=== PATIENT | male | born 1980 | race Caucasian/White ===

== ENCOUNTER 2025-03-15 00:30 | Day surgery (SDC) | payer OTHER, SELFPAY ==
[2025-03-06 12:38] VITALS: BMI 28.8
--- NOTE | 2025-03-06 12:49 | PC.NURSE ---
Report to hospital entrance 7 right of the green pavilion located off [facility] by 'thuy parking lot, at time _0600_ on date _[id number]_. Planned Procedure Time: _729_.? Time changes happen often and if your time is changed the preop area will call you the afternoon before. - You and your visitor will be asked to self-screen and do not enter if you have any COVID symptoms. Please call surgeon if you need to reschedule. - A mask is optional within the hospital at this time. Patients may have clear liquids (water, carbonated beverages, clear teas, apple juice) until 3 hours prior to surgery with a maximum of 20 ounces. - No food from midnight until time of surgery and no smoking, or chewing tobacco (or any form of nicotine). No chewing gum, candy or mints. Take only the following medications with a SIP of water on the morning of surgery: Sertraline____ DO NOT STOP ANY OF YOUR OTHER PRESCRIPTION MEDICATIONS PRIOR TO SURGERY EXCEPT THE FOLLOWING Hold all vitamins and supplements for 3 days per anesthesiologist. Medications to discontinue per physician ____Ibuprofen Date to take last ukfo___[id number]____ Please no make-up, nail honduran, hairspray, perfume, deodorant, or body powder the day of surgery.? No jewelry (including any body piercings) or valuables the day of surgery, leave them at home.? Please take a shower or bath the night before, or the morning of, surgery with an antibacterial soap.? Wear comfortable, loose fitting clothing. - Jewelry must be removed prior to entering the operating room.? Rings and piercings that are not removed may be cut off. - The hospital will not accept responsibility for valuables.? - Please leave all valuables, including medications, at home the day of surgery. Follow any additional instructions given to you from your surgeon. Telephone instructions given to __Poornima Ledbetter___and asked if any additional questions and then verbalized understanding. Patient advised to call surgeon office or pre surgery nurse liaison [phone] if any additional questions.
[2025-03-15] VITALS (13 sets, daily range): BP systolic 111–142; BP diastolic 62–95; PULSE 60–97; RESP 12–20; TEMP 36.1–36.6; O2SAT 95–100
--- NOTE | ~2025-03-15 | XR_ITS ---
EXAMINATION: XR fluoroscopy no charge DATE: 03/15/2025 11:02 INDICATION: Cervical discectomy and fusion TECHNIQUE: 5 fluoroscopic images of the spine were obtained during procedure performed by Dr. Butler . Radiologist was not present for the imaging or procedure. The amount of fluoroscopy time used durin g this procedure was 0.2 minutes. Total DAP was 0.523 Gym^2. COMPARISON: None. FINDINGS: Initial image demonstrates endotracheal tube extending to the oropharynx and visualized upper trachea and beyond the margin of the field of imaging. Mild anterolisthesis C2 on C3. Cervical spondylosis w ith moderate disc height loss at C3-C4 and C5-C6 and mild disc height loss at C2-C3 and C4-C5. Subseq uent images demonstrate discectomies and placement of interbody fusion device at C4-C5, C5-C6 and C6- C7. There is also anterior plate and screw fixation extending from C4-C7. IMPRESSION: 1. Fluoroscopy utilized during C4-C5 through C6-C7 discectomies and C4-C7 instrumented anterior spina l fusion. See procedure note for further detail. Reviewed, dictated and finalized at location A. IMPRESSION: 1. Fluoroscopy utilized during C4-C5 through C6-C7 discectomies and C4-C7 instr umented anterior spinal fusion. See procedure note for further detail.
--- NOTE | ~2025-03-15 | XR_ITS ---
CHEST RADIOGRAPH, PA AND LATERAL CLINICAL HISTORY: CERVICAL SPINE SURGERY PREOP . COMPARISON: None available TECHNIQUE: PA and lateral views of the chest. FINDINGS The cardiomediastinal silhouette is unremarkable. The lungs are clear. IMPRESSION: No focal infiltrate or effusion. Reviewed, dictated and finalized at location A.
--- OUTSIDE RECORDS SUMMARY | 2025-03-15 00:33 | XMS_ITS | Clinical Summary ---
Author Organization [facility] Address [address] [place] [address] Care Team Providers Care Magistrate Assistant Name Role Phone Rosales Sagastume MD, Ben Primary Care Provider [phone] Encounters Date Type Department Care Team Description 02/22/2025 10:00 AM CDT - 02/22/2025 11:59 PM CDT Hospital Encounter [facility] [address] [facility] [place], [place] [id number] Blanca Tang PA Discharge Disposition: Home or Self Care (Routine Discharge) 02/22/2025 Travel from Last 3 Months Social History Tobacco Use Types Packs/Day Years Used Date Smoking Tobacco: Never Assessed Sex and Gender Information Value Date Recorded Sex Assigned at Not on file Legal Sex Male 10:30 AM CDT Gender Identity Not on file Sexual Orientation Not on file Plan of Treatment Health Maintenance Due Date Last Done Comments Annual Physical 1983 Hepatitis C 1998 DTaP, Tdap and Td Vaccines ( 1 - Tdap) 1999 Hepatitis B Vaccines (1 of 3 - 19+ 3-dose series) 1999 HPV Vaccines (1 - 3-dose SCD M series) 2007 COVID-19 Vaccine (2023-2 5 season) 2024 Meningococcal B Vaccine Aged Out No l onger eligible based on patient's age to complete this topic Meningococcal Vaccine Aged Out No kelechi ora eligible based on patient's age to complete this topic Pneumococcal Vaccine: Pediat rics (0 to 5 Years) and At-Risk Patients (6 to 49 Years) Aged Out No longer eligible b ased on patient's age to complete this topic RSV Immunizations Under 20 Months Aged Out No longer eligible based on patient's age to complete this topic Procedures Procedure Name Priority Date/Time Associated Diagnosis Comments CT CERV SPINE WO CON Routine 02/22/2025 11:05 AM CDT Degenerative disc disease, cervical from Last 3 Months Results * CT CERV SPINE WO CON (02/22/2025 11:05 AM CDT) Anatomical Region Laterality Modality Spine Computed Tomogra phy 03/01/2025 12:4 2 PM CDT Impressions 03/01/2025 12:59 PM CDT IMPRESSION: 1) Mild abnormal cervical kyphosis with persistent 5 mm anterior translation of C2 on C3. 2. Severe chronic multilevel cervical spine degenerative disc disease/spondylosis similar to previous study. Ordered By: BLANCA TANG Interpreted By: Lawrence Bains MD, 03/01/2025 12:42 PM Narrative 03/01/2025 12:59 PM CDT [address] [place] [address] Examination: CT CERV SPINE WO CON Exam time: 02/22/2025 10:59 AM Clinical history: Chronic neck pain Comparison: MRI cervical spine 11/10/2024 Technique: Axial images obtained through the cervical spine without contrast using low-dose CT technique. Sagittal and coronal reconstruction. Findings: There is a normal craniovertebral junction. There is abnormal cervical kyphosis similar to previous study with approximately 5 mm anterior translation of C2 on C3. Cervical vertebral body heights are well-maintained. There is no evidence of acute cervical spine fracture or focal lytic bone destructive lesion. No significant abnormal prevertebral soft tissue swelling. Normal relationship between the anterior arch of C1 and the odontoid with some chronic degenerative change. C2-3 demonstrates chronic degenerative disc disease with diffuse disc bulge, uncovertebral spurring, right side facet degenerative change and 5 mm anterior translation of C2 contributing to moderate central stenosis with severe narrowing of the right neural foramen. C3-4 demonstrates chronic degenerative disc disease with diffuse disc bulge, uncovertebral spurring and left-sided facet degenerative change causing moderate to severe central stenosis with slight impingement on the left ventral cord and severe narrowing of left neural foramen. C4-5 demonstrates chronic degenerative disc disease with diffuse disc bulge, uncovertebral spurring and facet degenerative change causing moderate to severe central stenosis with severe narrowing of left neural foramen. C5-6 demonstrates chronic degenerative disc disease with diffuse disc bulge, uncovertebral spurring and facet degenerative change causing severe central stenosis with severe right and moderate left foraminal narrowing. C6-7 demonstrates chronic degenerative disc disease with diffuse disc bulge and uncovertebral spurring causing severe central stenosis with severe narrowing of both neural foramina. C7-T1 disc level is unremarkable. No significant acute paraspinous soft tissue abnormality is demonstrated. Procedure Note Lawrence Bains MD - 03/01/[address] [place] [address] Examination: CT CERV SPINE WO CON Exam time: 02/22/2025 10:59 AM Clinical history: Chronic neck pain Comparison: MRI cervical spine 11/10/2024 Technique: Axial images obtained through the cervical spine withoutcontrast using low-dose CT technique. Sagittal and coronalreconstruction. Findings: There is a normal craniovertebral junction. There is abnormalcervical kyphosis similar to previous study with approximately 5 mmanterior translation of C2 on C3. Cervical vertebral body heights arewell-maintained. There is no evidence of acute cervical spine fracture orfocal lytic bone destructive lesion. No significant abnormal prevertebralsoft tissue swelling. Normal relationship between the anterior arch of C1and the odontoid with some chronic degenerative change. C2-3 demonstrates chronic degenerative disc disease with diffuse discbulge, uncovertebral spurring, right side facet degenerative change and 5mm anterior translation of C2 contributing to moderate central stenosiswith severe narrowing of the right neural foramen. C3-4 demonstrates chronic degenerative disc disease with diffuse discbulge, uncovertebral spurring and left-sided facet degenerative changecausing moderate to severe central stenosis with slight impingement on theleft ventral cord and severe narrowing of left neural foramen. C4-5 demonstrates chronic degenerative disc disease with diffuse discbulge, uncovertebral spurring and facet degenerative change causingmoderate to severe central stenosis with severe narrowing of left neuralforamen. C5-6 demonstrates chronic degenerative disc disease with diffuse discbulge, uncovertebral spurring and facet degenerative change causing severecentral stenosis with severe right and moderate left foraminalnarrowing. C6-7 demonstrates chronic degenerative disc disease with diffuse discbulge and uncovertebral spurring causing severe central stenosis withsevere narrowing of both neural foramina. C7-T1 disc level is unremarkable. No significant acute paraspinous soft tissue abnormality isdemonstrated. IMPRESSION: 1) Mild abnormal cervical kyphosis with persistent 5 mm anteriortranslation of C2 on C3. 2. Severe chronic multilevel cervical spine degenerative discdisease/spondylosis similar to previous study. Ordered By: BLANCA TANG Interpreted By: Lawrence Bains MD, 03/01/2025 12:42 PM Blanca Tang ID CT Final Resul t from Last 3 Months Insurance [id number] Care Teams Magistrate Assistant Relationship Specialty Start Date End Date Ben Caba MD [facility] [address] [place] [address] PCP - General INTERNAL MEDICINE 05/07/23
--- NOTE | 2025-03-15 07:13 | P.PNAN_ITS ---
Anes - Initial Pre Proc Eval Procedure: Operation Date: 03/15/25 07:30 Proposed Procedures p Anterior Cervical Discectomy and Fusion C4-5, C5-6, C6-7 - Kathia Butler MD Date/Time: 03/15/25 07:13 Surgeon: Kathia Butler MD Pre Op Diagnosis: Cerv Spondylolisthesis Patient Data Age: 44 Gender: M Height: 1.83 m Weight: 97.6 kg Last Vital Signs Temp 36.6 C 03/15/25 06:38 Pulse 60 03/15/25 06:38 Resp 16 03/15/25 06:38 BP 140/86 03/15/25 06:38 Pulse Ox 100 03/15/25 06:38 O2 Del Method Room Air 03/15/25 06:38 Allergies Allergy/AdvReac Type Severity Reaction Status Date / Time No Known Allergies Allergy Verified 03/15/25 06:33 Home Medications ?Medication ?Instructions ?Recorded ?Confirmed ?Type sertraline 100 mg tablet 100 mg PO DAILY 05/19/24 03/15/25 History buprenorphine 4 mg-naloxone 1 mg 1 film buccal DAILY 03/06/25 03/15/25 History sublingual film ibuprofen 600 mg tablet (IBU) 600 mg PO BID PRN pain 03/06/25 03/06/25 History sennosides 8.6 mg tablet (Laxative 8.6 mg PO BID PRN constipation 03/06/25 03/06/25 History (sennosides)) tamsulosin 0.4 mg capsule (Flomax) 0.4 mg PO HS 03/06/25 03/15/25 History Laboratory Tests 03/15/25 06:05 Blood Type B Positive Antibody Screen Pending Patient hx anesthesia problems: none Family hx anesthesia problems: none Results Review: All pre-operative results and documents have been reviewed as part of the pre- operative evaluation. [facility] Surgical History Surgical History History of surgery on arm (~1996) Family History Family History Other Anxiety Asthma Cancer Depression Social History Social History Smoking status: Unknown if ever smoked Alcohol intake: never Substance use: never Substance use type: opiates and other Other substance usage details: Stimulant use disorder. Living arrangements: incarcerated Anes - Eval Final PreProcedure Day of Procedure 03/15/25 07:13 Patient weight: overweight Heart: regular rate and rhythm Lungs: clear to auscultation Airway: Mallampati scale class II Neurological: alert and oriented Last oral intake: >/= 8 hours ASA classification: III Emergent: no Anesthetic plan: proceed Anesthesia type and monitoring: general ETT and standard monitoring Results Review: All pre-operative results and documents have been reviewed as part of the pre- operative evaluation. Informed Consent: The patient's anesthetic plan and its attendant risks and benefits were discussed with the patient/family/POA. Questions were solicited and answers provided to the satisfaction of the patient/family/POA.
--- NOTE | 2025-03-15 07:14 | P.HP_ITS ---
H&P: HPI History of Present Illness Date/Time: 03/15/25 07:14 Chief Complaint: neck pain Narrative: Mr. Bran is a 44-year-old male with no significant medical history whom I have been following for neck and bilateral arm pain. He reports at least a 10 year history of neck pain which started without any inciting event. He has a constant level of dull neck pain neck and worsened with physical activity, turning his neck with Glee, and when sleeping at night. He often wakes up in the middle of the night with burning pain in both arms, worse on the right side. He has pain that radiates predominantly into the right arm into the 2nd through 4th fingers of the right hand. He denies any myelopathic symptoms. He has had pain into the left arm in the past, but this has been less bothersome for him over the last few months. He has had physical therapy without significant improvement. He also had a right C5-6 epidural steroid injection in June which was very helpful for several weeks. He returns today with follow-up of an updated MRI cervical spine. He notably is a prisoner. He takes be prone or pain for history of opioid addiction. He otherwise does not take any blood thinners. He does not smoke or use any nicotine products. Review of Systems Review of Systems: All systems reviewed & are unremarkable except as noted in HPI and below PMFSH Surgical History Surgical History History of surgery on arm (~1996) Family History Family History Other Anxiety Asthma Cancer Depression Social History Social History Smoking status: Unknown if ever smoked Alcohol intake: never Substance use: never Substance use type: opiates and other Other substance usage details: Stimulant use disorder. Living arrangements: incarcerated Meds Home Medications and Allergies Home Medications ?Medication ?Instructions ?Recorded ?Confirmed ?Type sertraline 100 mg tablet 100 mg PO DAILY 05/19/24 03/15/25 History buprenorphine 4 mg-naloxone 1 mg 1 film buccal DAILY 03/06/25 03/15/25 History sublingual film ibuprofen 600 mg tablet (IBU) 600 mg PO BID PRN pain 03/06/25 03/06/25 History sennosides 8.6 mg tablet (Laxative 8.6 mg PO BID PRN constipation 03/06/25 03/06/25 History (sennosides)) tamsulosin 0.4 mg capsule (Flomax) 0.4 mg PO HS 03/06/25 03/15/25 History Allergies Allergy/AdvReac Type Severity Reaction Status Date / Time No Known Allergies Allergy Verified 03/15/25 06:33 Vital Signs Vital Signs - 24 hr 03/15/25 06:38 Temperature 97.9 F Pulse Rate 60 Respiratory Rate 16 Blood Pressure 140/86 Pulse Oximetry 100 Oxygen Delivery Room Air Exam Narrative: Active ROM somewhat limited Baseline paresthesias in left ulnar distribution from previous injury Unless otherwise stated above, the patient's physical exam is as follows: General: -Well developed and well nourished. No a cute distress. Cooperative with exam. Mental status: -Awake and oriented to person, place, an d time. Affect is normal. -Fund of knowledge appropriate -Recent and remote memory are intact -Attention span and concentration appear normal -Language function is normal -There is no evidence of aphasia in conv ersational speech. Cranial nerves: -CN II: Visual whalen full to bedside co nfrontation -CN III, IV, : Pupils equal, round, an d reactive to light; extraocular movements, no ptosis, no nystagmus -CN V: Facial sensation intact in V1 thr ough V3 distributions -CN VII: Face symmetric -CN VIII: Hearing intact to conversation al speech -CN IX, X: Palate elevates symmetrically ; normal phonation -CN XI: Symmetric full strength of correa ocleidomastoid and trapezius muscles -CN XII: Tongue protrudes midline Integumentary: -No obvious skin lesions or masses Motor: -Muscle tone normal without spasticity o f flaccidity. No atrophy. No fasciculations. -No pronator drift -Right upper extremity: deltoid 5/5, bic eps 5/5, triceps 5/5, wrist extensors 5/5, wrist flexors 5/5, intrinsics 5/5 -Left upper extremity: deltoid 5/5, aravind ps 5/5, triceps 5/5, wrist extensors 5/5, wrist flexors 5/5, intrinsics 5/5 -Right lower extremity: iliopsoas 5/5, q uadriceps 5/5, hamstrings 5/5, tibialis anterior 5/5, gastroc-soleus 5/5, EHL 5/5 -Left lower extremity: iliopsoas 5/5, qu adriceps 5/5, hamstrings 5/5, tibialis anterior 5/5, gastroc-soleus 5/5, EHL 5/5 Sensory: -Intact to light touch throughout -Normal proprioception throughout Reflexes: -1-2+ DTR's throughout -No Cobos's, clonus, or Babinski bilat erally Musculoskeletal: -Symmetric; no deformities, masses or te nderness; no known fractures -Cervical spine: no tenderness to palpat ion, no pain, and normal cervical spine movements. Normal cervical lordosis -Spurling's test negative -Tinel's sign negative -Shoulder: no pain on provocative testin g bilaterally -Elbow: no instability, subluxation, or laxity bilaterally I personally reviewed the MRI cervical spine in PACS which shows a grade 1-2 anterolisthesis of C2 on C3 and grade 1 anterolisthesis of C4 on C5 with diffuse degenerative changes throughout the cervical spine. There is right neuroforaminal stenosis at C2-3. There is severe left neuroforaminal stenosis at C3-4 and C4-5. There is severe right neuroforaminal stenosis and moderate left neuroforaminal stenosis at C5-6, and there is severe bilateral neuroforaminal stenosis at C6-7. There is [id number] bilateral neuroforaminal stenosis at C7-T1 Assessment and Plan Assessment and plan (1) Cervical radiculopathy: Code(s): M54.12 - Radiculopathy, cervical region Status: Acute (2) Cervical spondylosis: Code(s): M47.812 - Spondylosis without myelopathy or radiculopathy, cervical region Status: Acute (3) Spondylolisthesis, cervical region: Code(s): M43.12 - Spondylolisthesis, cervical region Status: Acute Plan Mr. Bran is a 44-year-old male with a long history of neck pain as well as right greater than left radicular arm pain which has been unresponsive to physical therapy and epidural steroid injection. He is neurologically intact on physical exam aside from some baseline paresthesias in the left arm related to a previous injury. He returns today with an updated MRI cervical spine that shows diffuse and fairly significant degenerative changes throughout the cervical spine. Most notably, there has been development of a spondylolisthesis at C4-5 with severe left neuroforaminal stenosis and moderate to severe bilateral neuroforaminal stenosis at C5-6 and C6-7. We discussed that there are other levels of his cervical spine that are radiographically abnormal, but a surgery to fix all of those changes would be very significant and something I would prefer to avoid at his relatively young age. Ultimately, I have offered him surgery in the form of an ACDF C4-5, C5-6, and C6-7. We discussed surgery in detail including risks, expected recovery, and restrictions after surgery.
--- NOTE | 2025-03-15 07:28 | WPDHPUPDATE1 ---
History and Physical Update Update Date/Time: 03/15/25 07:28 History and Physical has been reviewed, including an updated exam of the patient. There are NO changes in the patient's condition. Risks, benefits, and alternatives have been discussed and questions answered. Patient agrees to proceed with procedure.
[2025-03-15] MEDS: ceFAZolin 2 GM in SODIUM CHLORIDE 0.9% IV 50 ML 100 ML IVPB ×2 (07:33→19:55)
[2025-03-15] MEDS: BUPIVACAINE/EPINEPHRINE 0.5% 50 ML VIAL 20 ML INFILTRATE (08:03)
[2025-03-15] MEDS: LACTATED RINGERS 1,000 ML 30 ML IV CONT ×2 (11:17→12:12)
--- NOTE | 2025-03-15 11:18 | P.OPB_ITS ---
Procedure Note - Brief Procedure Note - Brief Date of procedure: 03/15/25 Cerv Spondylolisthesis Post-op diagnosis: Same Procedure performed: ACDF C4-5, C5-6, C6-7 Surgeon: Kathia Butler MD Manager Of Network: [facility] Anesthesia: GETA Findings: ACDF without complication Estimated blood loss (mL): 25 Drains: No Packing: No Pathology: None sent Complications: None Condition: Stable Disposition: PACU
--- NOTE | 2025-03-15 11:24 | W.PM.PROC2 ---
Procedure Note - Detailed Date of Procedure 03/15/25 Pre-op Diagnosis Cerv Spondylolisthesis Post-op Diagnosis Same Procedure Performed 1. Anterior cervical diskectomy C4-5, C5-6, C6-7 2. Anterior cervical arthrodesis C4-5, C5-6, C6-7 with Magnetos 3. Anterior cervical interbody placement at C4-5, C5-6, C6-7 4. Use of microscope for microsurgical dissection 5. Use of C-arm for fluoroscopy Surgeon Kathia Butler MD Fiction [employer] Nonfiction Prose Writer [facility] Anesthesia General Description of Procedure The patient was taken to the operating room and was transferred to the operating table in the supine position. General anesthesia was induced. Pressure points were appropriately padded, and compression devices were placed on the patient's calves. A shoulder roll was placed. The appropriate level was confirmed with the C-arm XR imaging. The patient was prepped and draped in usual sterile fashion. Perioperative antibiotics were given. Time out was performed. Local anesthesia was injected into the planned incision site. An incision was made with a 10-blade scalpel on the right side of the neck. The subcutaneous tissue was undermined above the platysma with the Metzenbaum scissors. The platysma was sharply opened horizontally. Bleeding was controlled with the bipolar. The avascular plane to the spine was dissected sharply. The anterior border of the spine was located and exposed with sharp and blunt dissection. A spinal needle was used to localize the C6-7 disc space; this was confirmed on fluoroscopy. The longus coli muscles were elevated bilaterally with a bovie. The C4-5, C5-6 and C6-7 disc spaces and vertebral bodies were exposed with the bovie. Once the C4, C5, C6, and C7 vertebral bodies and adjacent intervertebral discs were adequately exposed, self-retaining retractors were placed through the superior incision. Fleming pins were placed in the C4 and C5 vertebral bodies and were distracted. A 15-blade scalpel was used to incise the C4-5 disc. A combination of Kerrisons, currettes, and pituitary instruments were used to remove each disc. The microscope was draped and brought into the surgical field. The removal of disc and osteophytes were completed using a high-speed drill, multiple Kerrison punches, and currettes. The posterior longitudinal ligament was opened with a nerve hook and kerrison rongeurs until the neuroforamen bilaterally were adequately decompressed. Interbody trial instruments were used to determine the appropriate size for the prosthetic vertebral interbody cage. Hemostasis was achieved in the disc space with floseal and cottonoid patties. A 6mm interbody was filled with Magnetos and placed at C4-5. The caspar pin was removed from C4 and replaced in C6. Wax was placed in the caspar pin site. This process was repeated at the C5-6 disc. The disc was removed as described above, and the posterior longitudinal ligament was opened until the neuroforamen bilaterally were adequately decompressed. Interbody trial instruments were used to determine the appropriate size for the prosthetic vertebral interbody cage. Hemostasis was achieved in the disc space. A 5mm interbody was filled with Magnetos and placed at C5-6. The caspar pin was removed from the C5 vertebral body and placed into the C7 vertebral body. The disc was removed as described above, and the posterior longitudinal ligament was opened until the neuroforamen bilaterally were adequately decompressed. Interbody trial instruments were used to determine the appropriate size for the prosthetic vertebral interbody cage. Hemostasis was achieved in the disc space. An 5mm interbody was filled with Magnetos and placed at C6-7. The Fleming pins were removed, and bone wax was used for hemostasis. Osteophytes over the vertebral bodies were removed with a Leksell and high-speed drill. A 51mm plate was placed and secured with 14mm screws. C-arm was brought in which showed adequate hardware placement. The surgical cavity was copiously irrigated; appropriate hemostasis was verified; and there was no evidence of dural tear/CSF leak. The platysma was closed with interrupted 3-0 Vicryl, followed by interrupted 3-0 Vicryl for the dermis, and 4-0 running subcuticular monocryl for the skin. Dermabond was placed. The patient was extubated, transferred to the bed, and taken to the PACU without incident. Billing codes 34779, [id number], 22507, [id number], [id number] Estimated Blood Loss 25 Drains No Packing No Pathology None sent Complications None Condition Stable Disposition PACU [facility] Billing Surgery - Charge Forward: Surgery Billing
[2025-03-15] MEDS: fentaNYL CITRATE INJ (*CRX) 100 MCG/2 ML VIAL 25 MCG IV PUSH ×8 (11:44→12:02)
[2025-03-15] MEDS: HYDROmorphone HCL INJ (*CRX) 1 MG/ML SYR 0.5 MG IV PUSH ×4 (12:04→12:22)
--- NOTE | 2025-03-15 13:19 | ADMGEN ---
This patient, Osito Bran, was admitted to [facility] Room 319-01. Patient/family oriented to hospital policies and general routines including ID bracelet, bed and alarms, visiting hours, pain management, procedures, bathroom and other care routines, personal items, smoking policy, room service/diet, and visiting hours. Information on how to activate the Rapid Response Team has been discussed. Patient/Family are encouraged to report perceived risks to care and to ask questions if they do not understand what they are told or what they should do.
[2025-03-15] MEDS: SODIUM CHLORIDE 0.9% IV 1,000 ML 100 ML IV CONT (14:02)
[2025-03-15] MEDS: ACETAMINOPHEN 500 MG TABLET 1000 MG PO ×2 (14:02→18:34)
[2025-03-15] MEDS: oxyCODONE HCL (*CRX) 5 MG TAB IR 10 MG PO (15:38)
[2025-03-15] MEDS: SERTRALINE HCL 50 MG TABLET 200 MG PO (17:14)
[2025-03-15] MEDS: oxyCODONE HCL (*CRX) 5 MG TAB IR PO (19:54)
[2025-03-15] MEDS: DOCUSATE SODIUM 100 MG CAPSULE PO (19:55)
[2025-03-15] MEDS: TAMSULOSIN HCL 0.4 MG CAPSULE PO (20:00)
[2025-03-15] MEDS: CYCLOBENZAPRINE HCL 10 MG TABLET PO (21:12)
[2025-03-16 00:03] VITALS: BP 126/78; PULSE 71; RESP 16; TEMP 36.2; O2SAT 98
[2025-03-16] MEDS: ACETAMINOPHEN 500 MG TABLET 1000 MG PO ×3 (00:06→12:08)
[2025-03-16] MEDS: oxyCODONE HCL (*CRX) 5 MG TAB IR 10 MG PO ×4 (00:13→13:54)
[2025-03-16 04:03] VITALS: BP 122/75; PULSE 58; RESP 20; TEMP 35.9; O2SAT 98
[2025-03-16] MEDS: SODIUM CHLORIDE 0.9% IV 1,000 ML 30 ML IV CONT (07:59)
[2025-03-16] MEDS: DOCUSATE SODIUM 100 MG CAPSULE PO (08:02)
[2025-03-16] MEDS: SERTRALINE HCL 50 MG TABLET 200 MG PO (08:02)
[2025-03-16 08:03] VITALS: BP 128/68; PULSE 78; RESP 18; TEMP 36.6; O2SAT 94
[2025-03-16] MEDS: ceFAZolin 2 GM in SODIUM CHLORIDE 0.9% IV 50 ML 100 ML IVPB (08:03)
--- NOTE | 2025-03-16 13:02 | P.PNNEUSUR_ITS ---
Progress Note: A&P Assessment and Plan (1) Status post cervical arthrodesis: Code(s): Z98.1 - Arthrodesis status Status: Acute Plan -Discharge back to shelter today -Activity and wound care precautions discussed -Printed prescriptions given for medication -Follow up with me in 2 weeks Subjective Date/time seen: 03/16/25 13:02 Interval history: Having pain at the base of the neck and across the shoulders. No pain or paresthesias into the arms. He has pain in his throat and some sense of swelling with swallowing, but he has been able to eat full meals today without difficulty. Ambulated in the halls and stairs. Voiding independently Review of Systems Review of Systems: All systems reviewed & are unremarkable except as noted in HPI and below Exam Narrative: AOx4 Full strength in upper extremities Sensation intact to light touch Incision c/d/i [place] collar in place Objective Data Vital Signs Vital Signs: Vital Signs - 24 hr 03/15/25 13:20 03/15/25 13:20 03/15/25 14:05 Temperature 97.3 F L 97.3 F L 97.0 F L Pulse Rate 69 69 97 Respiratory Rate 18 18 18 Blood Pressure 132/71 130/79 128/64 Pulse Oximetry 100 98 98 Oxygen Delivery 03/15/25 15:02 03/15/25 15:03 03/15/25 15:13 Temperature 97.3 F L Pulse Rate 80 Respiratory Rate 16 Blood Pressure 141/77 H Pulse Oximetry 96 Oxygen Delivery Room Air Room Air 03/15/25 20:03 03/16/25 00:03 03/16/25 04:03 Temperature 97.2 F L 97.2 F L 96.7 F L Pulse Rate 68 71 58 L Respiratory Rate 16 16 20 Blood Pressure 131/79 126/78 122/75 Pulse Oximetry 99 98 98 Oxygen Delivery 03/16/25 08:03 03/16/25 08:03 Temperature 97.8 F Pulse Rate 78 Respiratory Rate 18 18 Blood Pressure 128/68 Pulse Oximetry 94 94 Oxygen Delivery Room Air Intake/Output Intake/Output: Intake & Output 03/13/25 03/14/25 03/15/25 03/16/25 23:59 23:59 23:59 23:59 Intake Total 1436.7 881.3 Balance 1436.7 881.3 Meds/Results Medications: Active Medications Generic Name Dose Route Start Last Admin Trade Name Freq PRN Reason Stop Dose Admin Acetaminophen 1,000 mg 03/15/25 13:03 03/16/25 12:08 Acetaminophen 500 Mg Tablet PO 1,000 mg Q6H MOMO Administration Al Hydrox/Mg Hydrox/Simethicone 20 ml 03/15/25 13:03 Mag Hydrox/Al Hydrox/Simeth 30 Ml Udc PO Q4H PRN Indigestion/Heartburn Bisacodyl 10 mg 03/15/25 13:03 Bisacodyl 10 Mg Suppository RECTAL DAILY PRN Constipation Cyclobenzaprine HCl 10 mg 03/15/25 13:03 03/15/25 21:12 Cyclobenzaprine Hcl 10 Mg Tablet PO 10 mg TID PRN Administration Muscle Spasms Docusate Sodium 100 mg 03/15/25 21:00 03/16/25 08:02 Docusate Sodium 100 Mg Capsule PO 100 mg Q12HR MOMO Administration Sodium Chloride 1,000 mls @ 100 mls/hr 03/15/25 13:03 03/16/25 10:05 Normal Saline Iv IV CONT 0 mls/hr .Q10H MOMO Infusion Cefazolin Sodium 2 gm in 50 mls @ 100 mls/hr 03/16/25 20:00 Ancef 2 Gm/D5w 50 Ml IVPB Q12H MOMO Morphine Sulfate 2 mg 03/15/25 13:03 Morphine Sulfate (*Crx) 2 Mg/Ml Inj IV PUSH Q2H PRN Breakthrough Pain Ondansetron HCl 4 mg 03/15/25 13:03 Ondansetron Inj 4 Mg/2 Ml Vial IV PUSH Q8H PRN Nausea And Vomiting Oxycodone HCl 10 mg 03/15/25 13:03 03/16/25 10:10 Oxycodone Hcl (*Crx) 5 Mg Tab Ir PO 10 mg Q4H PRN Administration Pain Rated 7-10 Oxycodone HCl 5 mg 03/15/25 13:03 03/15/25 19:54 Oxycodone Hcl (*Crx) 5 Mg Tab Ir PO 5 mg Q4H PRN Administration Pain Rated 4-6 Senna/Docusate Sodium 1 tab 03/15/25 13:03 Senna/Docusate Sodium Tablet PO HS PRN Constipation Sertraline HCl 200 mg 03/15/25 16:40 03/16/25 08:02 Sertraline Hcl 50 Mg Tablet PO 200 mg DAILY MOMO Administration Tamsulosin HCl 0.4 mg 03/15/25 21:00 03/15/25 20:00 Tamsulosin Hcl 0.4 Mg Capsule PO 0.4 mg HS MOMO Administration Radiology Results: ITS Impressions Chest X-Ray 03/15/25 06:25 IMPRESSION: No focal infiltrate or effusion. Fluoroscopy 03/15/25 12:21 IMPRESSION: 1. Fluoroscopy utilized during C4-C5 through C6-C7 discectomies and C4-C7 instrumented anterior spinal fusion. See procedure note for further detail.
[2025-03-16] MEDS: CYCLOBENZAPRINE HCL 10 MG TABLET PO (13:54)
--- NOTE | 2025-03-16 14:07 | WPDANESPN ---
Anes - Prog Note Post-Op Date/Time: 03/16/25 14:07 Cardiovascular status: normal Respiratory status: normal Airway patency: baseline Mental status: baseline Post-Op hydration status: normal Vital Signs: Last Vital Signs Temp 97.8 F 03/16/25 08:03 Pulse 78 03/16/25 08:03 Resp 18 03/16/25 08:03 BP 128/68 03/16/25 08:03 Pulse Ox 94 03/16/25 08:03 O2 Del Method Room Air 03/16/25 08:03 O2 Flow Rate 2 03/15/25 12:30 Pain Score (VAS): 0/10 I/O: Intake & Output 03/15/25 03/16/25 03/16/25 23:59 07:59 15:59 Intake Total 986.7 303.3 578 Balance 986.7 303.3 578 Post-procedural complaints: none Patient Feedback: Patient satisfied with anesthetic care.
== END 2025-03-16 14:50 ==
LOC: ANHSURGERY 05:58 → ANH3MEDSUR 13:05
PROVIDERS: Visit Provider Neurological Surgery
PROC: (CPT 63030; principal; 2025-03-15 07:30)
DX: M43.12 Spondylolisthesis, cervical region (principal); M47.22 Other spondylosis with radiculopathy, cervical region
CPT/HCPCS: 22551; 22552 ×2; 22853 ×3; 36415; 71046; 86850; 86900; 86901; 97116; 97162; 97166; 97530; 97535; 99199; J0690; A9270; C1713; J1100; J1171; J2003; J2250; J2405; J2704; J3010; J7030; J7120